=== PATIENT | female | born 1965 | race Caucasian/White ===

== ENCOUNTER 2023-02-16 06:58 | Day surgery (SDC) | payer BC ==
[~2023-02-16 06:58] MED LIST: Dexmedetomidine 200 MCG/2 ML SDV ONE; Ketamine 200 MG/20 ML MDV ONE; Lactated Ringers 1,000 ML IV SCH; Lidocaine 1% 5 ML VIAL ONE; Midazolam 1 MG/ML 2 ML SDV ONE; Propofol 200 MG/20 ML SDV ONE; Sodium Chloride 0.9% 10 ML Syringe FLUSH PRN; Sodium Chloride 0.9% 10 ML Syringe FLUSH SCH; Succinylcholine 200 MG/10 ML MDV ONE; fentaNYL 250 MCG/5 ML SDV ONE
[2023-02-16] MEDS ORDERED: Lidocaine 1% 30 ML SDV ONE (07:14)
[2023-02-16] MEDS ORDERED: Bupivacaine 0.5%/EPINEPHrine 1:200,000 50 ML MDV ONE (07:15)
[2023-02-16 07:34] LABS: BASOPHILS ABSOLUTE AUTO 0.1 K/mm3 (0.0-0.2); BASOPHILS PERCENT AUTO 0.7 % (0.0-1.0); EOSINOPHILS ABSOLUTE AUTO 0.1 K/mm3 (0.0-0.4); EOSINOPHILS PERCENT AUTO 2.1 % (0.0-6.0); HEMOGLOBIN 13.5 gm/dl (12.0-16.0); IMMATURE GRAN ABSOLUTE AUTO 0.02 K/mm3 (0.00-0.05); IMMATURE GRAN PERCENT AUTO 0.3 % (0.0-0.4); LYMPHOCYTES ABSOLUTE AUTO 2.6 K/mm3 (1.0-4.8); LYMPHOCYTES PERCENT AUTO 38.7 % (24.0-44.0); MEAN CORPUSCULAR HEMOGLOBIN 30.7 pg (28.0-32.0); MEAN CORPUSCULAR HGB CONC 32.9 g/dl (32.0-36.0); MEAN CORPUSCULAR VOLUME 93.2 fl (83.0-99.0); MEAN PLATELET VOLUME 8.8 fl (9.4-12.3); MONOCYTES ABSOLUTE AUTO 0.5 K/mm3 (0.0-0.8); MONOCYTES PERCENT AUTO 7.9 % (0.0-8.0); NEUTROPHILS ABSOLUTE AUTO 3.4 K/mm3 (1.8-7.7); NEUTROPHILS PERCENT AUTO 50.3 % (41.0-71.0); PLATELET COUNT,PLT 276 K/mm3 (150-400); WHITE BLOOD CELL COUNT,WBC 6.67 K/mm3 (3.9-11.3)
[2023-02-16] MEDS ORDERED: fentaNYL 100 MCG/2 ML SDV IVPUSH PRN (07:37)
[2023-02-16] MEDS ORDERED: Ondansetron 4 MG/2 ML SDV IVPUSH PRN (07:37)
[2023-02-16] MEDS ORDERED: HYDROmorphone 0.5 MG/0.5 ML Syringe IVPUSH PRN (07:37)
[2023-02-16 07:50] LABS: ANION GAP 13.8 (5-15); CREATININE 0.7 mg/dL (0.55-1.02); EST CRCL DRUG DOSING (CG) 88.3 mL/min
[2023-02-16 07:53] LABS: POTASSIUM,K 4.8 mEq/L (3.5-5.1)
[2023-02-16] MEDS ORDERED: Rocuronium 50 MG/5 ML Vial ONE (08:15)
[2023-02-16] MEDS ORDERED: ceFAZolin 2 GM Vial ONE (08:28)
[2023-02-16] MEDS ORDERED: Dexamethasone 4 MG/ML 5 ML MDV ONE (08:29)
[2023-02-16] MEDS ORDERED: Ondansetron 4 MG/2 ML SDV ONE (08:29)
[2023-02-16] MEDS ORDERED: Phenylephrine 1% 10 MG/ML SDV ONE (08:45)
[2023-02-16] MEDS ORDERED: Lactated Ringers 1,000 ML IV ONE (09:45)
[2023-02-16] MEDS ORDERED: Neostigmine Methylsulfate 10 MG/10 ML MDV ONE (09:56)
[2023-02-16] MEDS ORDERED: Ketorolac 15 MG/ML SDV ONE (09:57)
[2023-02-16] MEDS ORDERED: Acetaminophen/oxyCODONE 325-5 MG Tab PO SCH (13:36)
== END 2023-02-16 15:15 | disposition home or self-care (01) ==
LOC: JD.SDS 06:58
PROVIDERS: ATTEND Surgery
DX: K81.1 Chronic cholecystitis (principal); K76.0 Fatty (change of) liver, not elsewhere classified; N85.00 Endometrial hyperplasia, unspecified; N83.209 Unspecified ovarian cyst, unspecified side; G47.33 Obstructive sleep apnea (adult) (pediatric); F41.9 Anxiety disorder, unspecified; F32.A Depression, unspecified; K63.5 Polyp of colon; R61 Generalized hyperhidrosis; Z90.89 Acquired absence of other organs; Z79.899 Other long term (current) drug therapy; Z98.890 Other specified postprocedural states
CPT/HCPCS: 36415; 47562; 58558; 58661; 80048; 85025; 86850; 86900; 86901; A9270; J0330; J0690; J1100; J1885; J2250; J2405; J2704; J2710; J3010; J3490; J7120; 00790; J2371